=== PATIENT | female | born 2000 | race Caucasian/White ===

== ENCOUNTER 2022-03-07 09:39 | Emergency (ER) | payer MEDICAID, OTHER ==
[~2022-03-07] VITALS: Ht 165.1 cm; Wt 159.1 kg
[2022-03-07] MEDS ORDERED: ipratropium/albuterol 3ml nebule NEB ONE (12:45)
--- NOTE | 2022-03-07 13:02 | NUR ---
RT at bedside.
[2022-03-07] MEDS ORDERED: BUDE180A INH (13:15)
[2022-03-07 13:21] VITALS: BP 155/94
== END 2022-03-07 13:29 | disposition home or self-care (01) ==
LOC: ER 09:40
DX: J45.21 Mild intermittent asthma with (acute) exacerbation (principal); I10 Essential (primary) hypertension; Z79.899 Other long term (current) drug therapy
CPT/HCPCS: 71045; 94640; 94760; 99283